=== PATIENT | male | born 1980 | race Caucasian/White ===

== ENCOUNTER 2016-10-16 14:42 | Emergency (ER) | payer MEDICARE, BC ==
[~2016-10-16] VITALS: Wt 91.0 kg
[~2016-10-16 14:42] MED LIST: ADDE30 PO; CITA10TA72 PO; CLON-429 PO; FIBER PILL PO; FISH OIL PO; LAMO25TB2 PO; LURA40TA PO; MELATONIN PO; MTF1000T PO; MULTIVITAMIN PO; TUMS PO
[2016-10-16 14:45] VITALS: Wt 91.0 kg
[2016-10-16] MEDS ORDERED: BACITUD TOP (16:22)
[2016-10-16] MEDS ORDERED: CEPH-443 PO (16:22)
--- NOTE | 2016-10-16 17:11 | ERD ---
ER Documentation Chief Complaint Date/Time DATE: 10/16/16 TIME: 17:05 Chief Complaint foot blisters HPI 35-year-old male patient with a past medical history of diabetes, anxiety, depression, asthma presents to the ED complaining of bilateral feet pain that started intermittently for 1 week. States that he has been walking barefoot. Reports that he sleeps at home with his mother, Jorge and his cats. Reports that he did not wear his shoes. Denies any trauma. Denies any homicidal and suicidal ideations. Denies any hallucinations or visual disturbances. Denies any fever, chills, nausea, vomiting, loss of sensation loss of range of motion, weakness, numbness or tingling. ROS All systems reviewed and are negative except as per history of present illness. Medications Home Meds Reported Medications Fluvoxamine Maleate (FLUVOXAMINE MALEATE) 150 Mg Cap.er.24h, 150 MG PO BID, #30 CAP 10/17/16 Trazodone Hcl* (Desyrel*) 100 Mg Tab, 100 MG PO QHS, #30 TAB 10/17/16 Omeprazole* (Omeprazole*) 40 Mg Capsule.dr, 40 MG PO DAILY, #30 CAP 10/17/16 Metformin Hcl* (Metformin Hcl*) 1,000 Mg Tablet, 1000 MG PO WITH BREAKFAST DINNE , #60 TAB 10/17/16 Losartan Potassium* (Losartan Potassium*) 50 Mg Tablet, 50 MG PO DAILY, TAB 10/17/16 Simvastatin* (Zocor*) 40 Mg Tablet, 40 MG PO QHS, #30 TAB 10/17/16 Selegiline Hcl* (Eldepril*) 5 Mg Tab, 5 MG PO WITH BREAKFAST , TAB 10/17/16 Thibodaux Carbonate* (Thibodaux*) 150 Mg Cap, 150 MG PO DAILY, CAP 10/17/16 Discontinued Reported Medications [Tums] No Conflict Check, PO BID 11/11/12 [Fiber Pill] No Conflict Check, PO DAILY 11/11/12 [Multivitamin] No Conflict Check, PO DAILY 11/11/12 [Melatonin] No Conflict Check, PO DAILY 11/11/12 [Fish Oil] No Conflict Check, PO BID 11/11/12 Dextroamphetamine-Amphetamine (Adderall) 30 Mg Tab, 30 MG PO DAILY 11/11/12 Clonazepam* (Klonopin*) 0.5 Mg Tab, 0.25 MG PO 5 TIMES PER WEEK 11/11/12 Metformin* (Glucophage*) 1,000 Mg Tablet, 1000 MG PO BID 11/11/12 Citalopram Hydrobromide* (Celexa*) 10 Mg Tablet, 40 MG PO DAILY 11/11/12 Lamotrigine* (Lamictal* CHEW) 25 Mg Tab.disper, 200 MG PO DAILY 11/11/12 Lurasidone Hcl (LATUDA) 40 Mg Tablet, 40 MG PO DAILY 11/11/12 Discontinued Scripts Bacitracin* (Bacitracin Oint (UD)*) 1 Applic Oint, 1 APPLIC TOP ONCE, #10 PKT APPLY TO blisters of feet Prov:DAYSI ADAMS PA-C 10/16/16 Cephalexin* (Keflex*) 500 Mg Capsule, 500 MG PO QID for 7 Days, CAP Prov:DAYSI ADAMS PA-C 10/16/16 Allergies Allergies: Coded Allergies: fluoxetine HCl (Verified Allergy, Mild, 10/17/16) sertraline HCl (Verified Allergy, Mild, 10/17/16) PMhx/Soc History of Surgery: Yes (LASIK SURGERY) Anesthesia Reaction: No Hx Neurological Disorder: No Hx Respiratory Disorders: No (ASTHMA) Hx Cardiac Disorders: Yes (HTN) Hx Psychiatric Problems: Yes (ANXIETY, DEPRESSION) Hx Miscellaneous Medical Probl: Yes (Diabetes) Hx Alcohol Use: No Hx Substance Use: No Hx Tobacco Use: No Smoking Status: Never smoker Physical Exam Vitals Temp 98 Pulse 114 SBP 132 DBP 71 O2 Sat 99 Physical Exam Const: [id number], well-nourished. In no acute distress. Head: Atraumatic, normocephalic Eyes: Normal Conjunctiva without injection ENT: Normal external ear, nose and mouth. Neck: Full range of motion. No meningismus. Resp: Clear to auscultation bilaterally. No wheezing, rhonchi, rales, or crackles. No accessory muscle use. No retractions. Cardio: Regular rate and rhythm, no murmurs Skin: No petechiae or rashes Back: No midline tenderness. No CVA tenderness. Ext: No cyanosis, or edema. Cap refill less than 2 seconds. Distal pulses intact bilaterally. Bilateral plantar blisters noted on the feet. No erythema , edema. Purulent discharge. Neur: Awake and alert. Normal gait and coordination. Muscle strength 5/5. Sensation intact bilaterally. Psych: Normal Mood and Affect Procedures/MDM 35-year-old male patient with no significant past medical history presents the ED complaining of bilateral plantar blisters. Patient is afebrile and nontoxic- appearing. Patient has normal vital signs. A dressing was applied to the affected area and was cleaned with normal saline. Patient was also was given socks for support. Patient is neurovascularly intact. Low suspicion for fractures, dislocations, scabies, SJS/TEN, erythema multiforme, sepsis, cellulitis, necrotizing fascitis, gangrene, meningococcemia or other emergent conditions. No indication as telepsychiatry consultation. No suicidal, homicidal ideations. No hallucinations or visual disturbances at this time. Discharge medications: Bacitracin, Keflex Follow up with primary care physician in 1-2 days for a wound check. Instructed patient to return to the ED sooner for any worsening symptoms. Patient's questions were answered. Patient understood and agreed with discharge plan. Patient discharged stable. Departure Diagnosis: Primary Impression: Friction blister of the foot Encounter type: initial encounter Laterality: unspecified laterality Qualified Code: S90.829A - Friction blister of the foot, unspecified laterality , initial encounter Condition: Stable Patient Instructions: Blister Referrals: [facility] YOU HAVE RECEIVED A MEDICAL SCREENING EXAM AND THE RESULTS INDICATE THAT YOU DO NOT HAVE A CONDITION THAT REQUIRES URGENT TREATMENT IN THE EMERGENCY DEPARTMENT. FURTHER EVALUATION AND TREATMENT OF YOUR CONDITION CAN WAIT UNTIL YOU ARE SEEN IN YOUR DOCTORS OFFICE WITHIN THE NEXT 1-2 DAYS. IT IS YOUR RESPONSIBILITY TO MAKE AN APPOINTMENT FOR FOLOW-UP CARE. IF YOU HAVE A PRIMARY DOCTOR --you should call your primary doctor and schedule an appointment IF YOU DO NOT HAVE A PRIMARY DOCTOR YOU CAN CALL OUR PHYSICIAN REFERRAL HOTLINE AT IF YOU CAN NOT AFFORD TO SEE A PHYSICIAN YOU CAN CHOSE FROM THE FOLLOWING [facility] CLINICS [facility] [address] [facility] [address] [facility] [address] [facility] [address] [facility] [address] [facility]. [facility] [address] [facility]. [facility] YOU HAVE RECEIVED A MEDICAL SCREENING EXAM AND THE RESULTS INDICATE THAT YOU DO NOT HAVE A CONDITION THAT REQUIRES URGENT TREATMENT IN THE EMERGENCY DEPARTMENT. FURTHER EVALUATION AND TREATMENT OF YOUR CONDITION CAN WAIT UNTIL YOU ARE SEEN IN YOUR DOCTORS OFFICE WITHIN THE NEXT 1-2 DAYS. IT IS YOUR RESPONSIBILITY TO MAKE AN APPOINTMENT FOR FOLOW-UP CARE. IF YOU HAVE A PRIMARY DOCTOR --you should call your primary doctor and schedule and appointment IF YOU DO NOT HAVE A PRIMARY DOCTOR YOU CAN CALL OUR PHYSICIAN REFERRAL HOTLINE AT . IF YOU CAN NOT AFFORD TO SEE A PHYSICIAN YOU CAN CHOSE FROM THE FOLLOWING [facility], [facility] INSTITUTIONS: [facility] [address] [place] [address] [facility] [address] [place] [address] [facility] [address] [place] [address] [facility] URGENT CARE/SPECIALTIES Additional Instructions: Follow up in 2 days in your clinic for wound check. FOLLOW UP WITH YOUR PRIMARY CARE PHYSICIAN TOMORROW for a referral to see a podatrist.Return to this facility if you are not improving as expected - fever, loss of sensation, loss of range of motion, infection, etc. DAYSI ADAMS PA-C Oct 16, 2016 17:11
[2016-10-17] MEDS ORDERED: LTH150C PO (15:43)
[2016-10-17] MEDS ORDERED: ELD5 PO (15:43)
[2016-10-17] MEDS ORDERED: LOSA50TA6 PO (15:44)
[2016-10-17] MEDS ORDERED: SIMV40TA2 PO (15:44)
[2016-10-17] MEDS ORDERED: OMEP40CA6 PO (15:45)
[2016-10-17] MEDS ORDERED: TRAZ100T15 PO (15:45)
[2016-10-17] MEDS ORDERED: METF1000 PO (15:45)
[2016-10-17] MEDS ORDERED: FLUV150C2 PO (15:47)
== END 2016-10-16 16:45 | disposition home or self-care (01) ==
LOC: FTE 14:42
DX: S90.821A Blister (nonthermal), right foot, initial encounter (principal); S90.822A Blister (nonthermal), left foot, initial encounter; E11.9 Type 2 diabetes mellitus without complications; J45.909 Unspecified asthma, uncomplicated; I10 Essential (primary) hypertension; X58.XXXA Exposure to other specified factors, initial encounter; Y92.9 Unspecified place or not applicable; Z79.84 Long term (current) use of oral hypoglycemic drugs
CPT/HCPCS: 99283

== ENCOUNTER 2016-10-17 15:00 | Emergency (ER) | payer MEDICARE, BC ==
[~2016-10-17] VITALS: Ht 165.1 cm; Wt 80.0 kg
[~2016-10-17 15:00] MED LIST changes: +BACITUD TOP; +CEPH-443 PO
[2016-10-17 15:03] VITALS: Ht 165.1 cm; Wt 80.0 kg
[2016-10-17] MEDS ORDERED: LTH150C PO (15:43)
[2016-10-17] MEDS ORDERED: ELD5 PO (15:43)
[2016-10-17] MEDS ORDERED: LOSA50TA6 PO (15:44)
[2016-10-17] MEDS ORDERED: SIMV40TA2 PO (15:44)
[2016-10-17] MEDS ORDERED: TRAZ100T15 PO (15:45)
[2016-10-17] MEDS ORDERED: OMEP40CA6 PO (15:45)
[2016-10-17] MEDS ORDERED: METF1000 PO (15:45)
[2016-10-17] MEDS ORDERED: FLUV150C2 PO (15:47)
[2016-10-17 16:02] LABS: BASOPHILS % 0.2 % (0.0-2.0); HEMATOCRIT 42.7 % (42.0-52.0); HEMOGLOBIN 14.4 g/dl (14.0-18.0); LYMPHOCYTES # 1.9 10^3/ul (0.8-2.9); LYMPHOCYTES % 14.1 % (15.0-51.0); MEAN CORPUSCULAR HEMOGLOBIN 27.6 pg (29.0-33.0); MEAN CORPUSCULAR HGB CONC 33.7 g/dl (32.0-37.0); MEAN CORPUSCULAR VOLUME 81.8 fl (82.0-101.0); MEAN PLATELET VOLUME 9.3 fl (7.4-10.4); MONOCYTE # 1.1 10^3/ul (0.3-0.9); NEUTROPHIL # 10.2 10^3/ul (1.6-7.5); NEUTROPHILS % 77.4 % (39.0-77.0); PLATELET COUNT 279 10^3/UL (140-415); RED BLOOD COUNT 5.22 10^6/ul (4.70-6.10); RED CELL DISTRIBUTION WIDTH 13.8 % (11.5-14.5); WHITE BLOOD COUNT 13.2 10^3/ul (4.8-10.8)
[2016-10-17 16:22] LABS: ALANINE AMINOTRANSFERASE 51 IU/L (13-69); ALBUMIN 4.9 g/dl (3.3-4.9); ALBUMIN/GLOBULIN RATIO 1.48; ALKALINE PHOSPHATASE 99 IU/L (42-121); ANION GAP 25 (8-16); ASPARTATE AMINO TRANSFERASE 31 IU/L (15-46); BILIRUBIN,INDIRECT 0.4 mg/dl (0-1.1); BILIRUBIN,TOTAL 0.4 mg/dl (0.2-1.3); BLOOD UREA NITROGEN 15 mg/dl (7-20); CARBON DIOXIDE 20 mmol/L (21-31); CHLORIDE 103 mmol/L (97-110); CREATININE 1.07 mg/dl (0.61-1.24); GLUCOSE 108 mg/dl (70-220); SODIUM 144 mmol/L (135-144); TOTAL PROTEIN 8.2 g/dl (6.1-8.1)
[2016-10-17 16:25] LABS: ACETAMINOPHEN < 10.0 ug/ml (10.0-30.0); ETHANOL < 10.0 mg/dl; SALICYLATE < 1.0 mg/dl (5.0-30.0)
[2016-10-17] MEDS ORDERED: HALOPERIDOL 5 MG INJ IM ONE (16:30)
[2016-10-17] MEDS ORDERED: BENZTROPINE 2 MG INJ IV ONE (18:00)
--- NOTE | 2016-10-17 22:09 | ERD ---
ER Documentation Chief Complaint Date/Time DATE: 10/17/16 TIME: 22:06 Chief Complaint blisters under feet HPI 35-year-old male presents the second day in a row for foot pain. He walks around he does not wear shoes. Also states that he is having auditory hallucinations. Denies any other pain besides his feet. Denies trauma. States that he does have a psychiatric history and has trouble thinking from time to time. He denies any drug use. ROS All systems reviewed and are negative except as per history of present illness. Medications Home Meds Reported Medications Fluvoxamine Maleate (FLUVOXAMINE MALEATE) 150 Mg Cap.er.24h, 150 MG PO BID, #30 CAP 10/17/16 Trazodone Hcl* (Desyrel*) 100 Mg Tab, 100 MG PO QHS, #30 TAB 10/17/16 Omeprazole* (Omeprazole*) 40 Mg Capsule.dr, 40 MG PO DAILY, #30 CAP 10/17/16 Metformin Hcl* (Metformin Hcl*) 1,000 Mg Tablet, 1000 MG PO WITH BREAKFAST DINNE , #60 TAB 10/17/16 Losartan Potassium* (Losartan Potassium*) 50 Mg Tablet, 50 MG PO DAILY, TAB 10/17/16 Simvastatin* (Zocor*) 40 Mg Tablet, 40 MG PO QHS, #30 TAB 10/17/16 Selegiline Hcl* (Eldepril*) 5 Mg Tab, 5 MG PO WITH BREAKFAST , TAB 10/17/16 Closter Carbonate* (Closter*) 150 Mg Cap, 150 MG PO DAILY, CAP 10/17/16 Discontinued Reported Medications [Tums] No Conflict Check, PO BID 11/11/12 [Fiber Pill] No Conflict Check, PO DAILY 11/11/12 [Multivitamin] No Conflict Check, PO DAILY 11/11/12 [Melatonin] No Conflict Check, PO DAILY 11/11/12 [Fish Oil] No Conflict Check, PO BID 11/11/12 Dextroamphetamine-Amphetamine (Adderall) 30 Mg Tab, 30 MG PO DAILY 11/11/12 Clonazepam* (Klonopin*) 0.5 Mg Tab, 0.25 MG PO 5 TIMES PER WEEK 11/11/12 Metformin* (Glucophage*) 1,000 Mg Tablet, 1000 MG PO BID 11/11/12 Citalopram Hydrobromide* (Celexa*) 10 Mg Tablet, 40 MG PO DAILY 11/11/12 Lamotrigine* (Lamictal* CHEW) 25 Mg Tab.disper, 200 MG PO DAILY 11/11/12 Lurasidone Hcl (LATUDA) 40 Mg Tablet, 40 MG PO DAILY 11/11/12 Discontinued Scripts Bacitracin* (Bacitracin Oint (UD)*) 1 Applic Oint, 1 APPLIC TOP ONCE, #10 PKT APPLY TO blisters of feet Prov:DAYSI ADAMS PA-C 10/16/16 Cephalexin* (Keflex*) 500 Mg Capsule, 500 MG PO QID for 7 Days, CAP Prov:DAYSI ADAMS PA-C 10/16/16 Allergies Allergies: Coded Allergies: fluoxetine HCl (Verified Allergy, Mild, 10/17/16) sertraline HCl (Verified Allergy, Mild, 10/17/16) PMhx/Soc History of Surgery: Yes (LASIK SURGERY) Anesthesia Reaction: No Hx Neurological Disorder: No Hx Respiratory Disorders: No (ASTHMA) Hx Cardiac Disorders: Yes (HTN) Hx Psychiatric Problems: Yes (Anxiety, Depression, Bipolar disorder, Schizoaffective DO.) Hx Miscellaneous Medical Probl: No Hx Alcohol Use: No Hx Substance Use: No Hx Tobacco Use: No Smoking Status: Never smoker Physical Exam Vitals Vital Signs Date Time Temp Pulse Resp B/P Pulse Ox O2 Delivery O2 Flow Rate FiO2 10/17/16 18:15 99.7 102 20 147/89 96 10/17/16 15:03 97.8 107 16 160/78 99 Physical Exam Const: [] No distress Head: Atraumatic Eyes: Normal Conjunctiva ENT: Normal External Ears, Nose and Mouth. Neck: Full range of motion..~ No meningismus. Resp: Clear to auscultation bilaterally Cardio: Regular rate and rhythm, no murmurs Abd: Soft, non tender, non distended. Normal bowel sounds Skin: No petechiae or rashes Back: No midline or flank tenderness Ext: No cyanosis, or edema, distal pulses intact, bilateral popped foot blisters with calluses and some excoriation. No bony tenderness. Capillary refill. No signs of infection Neur: Awake and alert and oriented 3, no focal deficit Psych: Does have some evidence of disorganized thinking, having auditory hallucinations. Result Diagram: 10/17/16 1528 10/17/16 1528 Results 24 hrs Laboratory Tests Test 10/17/16 15:28 White Blood Count 13.210^3/ul Red Blood Count 5.2210^6/ul Hemoglobin 14.4g/dl Hematocrit 42.7% Mean Corpuscular Volume 81.8fl Mean Corpuscular Hemoglobin 27.6pg Mean Corpuscular Hemoglobin Concent 33.7g/dl Red Cell Distribution Width 13.8% Platelet Count 95763^3/UL Mean Platelet Volume 9.3fl Neutrophils % 77.4% Lymphocytes % 14.1% Monocytes % 8.0% Eosinophils % 0.0% Basophils % 0.2% Nucleated Red Blood Cells % 0.0/100WBC Neutrophils # 10.210^3/ul Lymphocytes # 1.910^3/ul Monocytes # 1.110^3/ul Eosinophils # 0.010^3/ul Basophils # 0.010^3/ul Nucleated Red Blood Cells # 0.010^3/ul Sodium Level 144mmol/L Potassium Level 4.0mmol/L Chloride Level 103mmol/L Carbon Dioxide Level 20mmol/L Anion Gap 25 Blood Urea Nitrogen 15mg/dl Creatinine 1.07mg/dl Glucose Level 108mg/dl Calcium Level 10.0mg/dl Total Bilirubin 0.4mg/dl Direct Bilirubin 0.00mg/dl Indirect Bilirubin 0.4mg/dl Aspartate Amino Transf (AST/SGOT) 31IU/L Alanine Aminotransferase (ALT/SGPT) 51IU/L Alkaline Phosphatase 99IU/L Total Protein 8.2g/dl Albumin 4.9g/dl Globulin 3.30g/dl Albumin/Globulin Ratio 1.48 Salicylates Level < 1.0mg/dl Acetaminophen Level < 10.0ug/ml Ethyl Alcohol Level < 10.0mg/dl Current Medications Medications (Trade) Dose Ordered Sig/Claudia Route PRN Reason Start Time Stop Time Status Last Admin Dose Admin Haloperidol (Haldol) 5 mg ONCE ONCE IM 10/17/16 16:30 10/17/16 16:31 DC 10/17/16 16:55 Benztropine Mesylate (Cogentin) 2 mg ONCE ONCE IV 10/17/16 18:00 10/17/16 18:01 DC 10/17/16 18:00 Procedures/MDM Patient with acute psychosis and history of psychiatric disorders. Also has mild abrasions on his feet with no signs of infection. Fever cleaned and provided with socks. Patient had a mildly elevated white blood cell count without any signs of infection. Because he has had a totally hallucinations he requested something for he was given Haldol 5 mg IM after he felt jittery and was given Cogentin. Because of auditory hallucinations difficulty caring for himself believe that he should be evaluated by a psychiatric facility and be fully evaluated. He is going to have a tele-psychiatry evaluation and I anticipate they will recommend admission for Departure Diagnosis: Primary Impression: Foot pain Additional Impression: Acute psychosis MANINDER BEEBE DO Oct 17, 2016 22:09
[2016-10-17 23:38] LABS: ADD UMIC YES; UR ASCORBIC ACID NEGATIVE (NEGATIVE); UR BILIRUBIN (Dip) NEGATIVE (NEGATIVE); UR BLOOD (Dip) NEGATIVE (NEGATIVE); UR CLARITY SLIGHTLY CLOUDY (CLEAR); UR COLOR YELLOW (YELLOW); UR GLUCOSE (Dip) NEGATIVE (NEGATIVE); UR KETONES (Dip) 2+ mg/dL (NEGATIVE); UR LEUKOCYTE ESTERASE (Dip) NEGATIVE Leu/ul (NEGATIVE); UR MUCUS MANY /HPF (NONE SEEN); UR NITRITE (Dip) NEGATIVE (NEGATIVE); UR RBC 3 /HPF (0-5); UR SPECIFIC GRAVITY (Dip) 1.033 (1.003-1.030); UR TOTAL PROTEIN (Dip) 2+ mg/dl (NEGATIVE); UR UROBILINOGEN (Dip) NEGATIVE (NEGATIVE)
[2016-10-17 23:58] LABS: BARBITURATES Negative (NEGATIVE); BENZODIAZEPINES Negative (NEGATIVE); CANNABINOIDS Negative (NEGATIVE); COCAINE Negative (NEGATIVE); OPIATES Negative (NEGATIVE)
--- NOTE | 2016-10-18 00:04 | PSY ---
Date/Time of Note Date/Time of Note DATE: 10/17/16 TIME: 23:54 Psychiatric Subjective Eval Consent Pt consented to telemedicine: Yes Subjective Evaluation Patient location: emergency Chief Complaint: blisters under feet Medical history Problems Medical Problems: (1) Acute psychosis Status: Acute (2) Foot pain Status: Acute (3) Friction blister of the foot Status: Acute Allergies: Coded Allergies: fluoxetine HCl (Verified Allergy, Mild, 10/17/16) sertraline HCl (Verified Allergy, Mild, 10/17/16) Psychiatric Objective Eval Mental Status Examination: Laboratory Results Laboratory Tests Test 10/17/16 15:28 10/17/16 23:07 White Blood Count 13.210^3/ul Red Blood Count 5.2210^6/ul Hemoglobin 14.4g/dl Hematocrit 42.7% Mean Corpuscular Volume 81.8fl Mean Corpuscular Hemoglobin 27.6pg Mean Corpuscular Hemoglobin Concent 33.7g/dl Red Cell Distribution Width 13.8% Platelet Count 67758^3/UL Mean Platelet Volume 9.3fl Neutrophils % 77.4% Lymphocytes % 14.1% Monocytes % 8.0% Eosinophils % 0.0% Basophils % 0.2% Nucleated Red Blood Cells % 0.0/100WBC Neutrophils # 10.210^3/ul Lymphocytes # 1.910^3/ul Monocytes # 1.110^3/ul Eosinophils # 0.010^3/ul Basophils # 0.010^3/ul Nucleated Red Blood Cells # 0.010^3/ul Sodium Level 144mmol/L Potassium Level 4.0mmol/L Chloride Level 103mmol/L Carbon Dioxide Level 20mmol/L Anion Gap 25 Blood Urea Nitrogen 15mg/dl Creatinine 1.07mg/dl Glucose Level 108mg/dl Calcium Level 10.0mg/dl Total Bilirubin 0.4mg/dl Direct Bilirubin 0.00mg/dl Indirect Bilirubin 0.4mg/dl Aspartate Amino Transf (AST/SGOT) 31IU/L Alanine Aminotransferase (ALT/SGPT) 51IU/L Alkaline Phosphatase 99IU/L Total Protein 8.2g/dl Albumin 4.9g/dl Globulin 3.30g/dl Albumin/Globulin Ratio 1.48 Salicylates Level < 1.0mg/dl Acetaminophen Level < 10.0ug/ml Ethyl Alcohol Level < 10.0mg/dl Urine Color YELLOW Urine Clarity SLIGHTLY CLOUDY Urine pH 5.0 Urine Specific Beauty 1.033 Urine Ketones 2+mg/dL Urine Nitrite NEGATIVEmg/dL Urine Bilirubin NEGATIVEmg/dL Urine Urobilinogen NEGATIVEmg/dL Urine Leukocyte Esterase NEGATIVELeu/ul Urine Microscopic RBC 3/HPF Urine Microscopic WBC 1/HPF Urine Mucus MANY/HPF Urine Hemoglobin NEGATIVEmg/dL Urine Glucose NEGATIVEmg/dL Urine Total Protein 2+mg/dl Assessment Additional comments: IDENTIFYING INFORMATION: 35 year old Male patient who is currently located at the hospital and for whom psychiatric consultation was requested. SOURCES OF INFORMATION: The patient who appears to be somewhat reliable and the medical records; the nursing staff. CHIEF COMPLAINT: "I had a long psychotic episode". HISTORY OF PRESENT ILLNESS: The patient was interviewed via telemedicine in the presence of and under the supervision of nursing staff of the hospital. The consent to conducting this interview via telemedicine was obtained by the nursing staff at the hospital. ARNAV Black reports that the patient presented yesterday barefoot with foot pain, was disorganized, was not answering questions appropriately, was RTIS. Pt was better more organized today after he presented to the ER for a second evaluation. Pt was bizarre with staff, and was RTIS. Pt requested antipsychotics , and received Haldol. The patient gone a dystonic reaction from the Haldol, and was therefore administered benztropine.. Is not on a hold. According to the emergency room physician's note, the patient presented with food pain, walked into the emergency room walking barefoot. He stated that he had auditory hallucinations. The patient reports that he was under a lot of stress, and was having a psychotic episode. Admits to hearing voices from a pocket world . Reports that time was going very slow. Reports that he got sunburned badly earlier today because he stayed outside for very long because of the psychotic episode. Reports that he was depressed but now feels better. Reports that he has not been sleeping well. Denies having SI, HI, paranoia. The patient denies using alcohol heavily or regularly. The patient denies using any other substances. In terms of past psychiatric history, the patient reports having a history of past psychiatric hospitalizations; the diagnosis was schizophrenia. The patient reports having a history of no past suicide attempts. PAST MEDICAL HISTORY: DM. CURRENT MEDICATIONS: metformin, lithium, fluvoxamine, trazodone, omeprazole, losartan, simvastatin, selegiline (last took his meds this past ). ALLERGIES TO MEDICATIONS: fluoxetine, sertraline. SOCIAL HISTORY: single, no children; on disability, no access to firearms. LABORATORY TESTS: CBC with white blood cells of 13.2, MCV 81.8, MCH 27.6. CMP with carbon dioxide of 20, anion gap of 25, total protein 8.2, alcohol was less than 10. REVIEW OF SYSTEMS: Constitutional (e.g., fever, weight loss): negative; Eyes, Ears, Nose, Mouth, Throat: negative; Cardiovascular: negative; Respiratory: negative; Gastrointestinal: negative; Genitourinary: negative; Musculoskeletal: + foot pain; Integumentary (skin and/or breast): + sunburns; Neurological: negative; Psychiatric: as per HPI; Endocrine: negative; Hematologic/Lymphatic: negative; Allergic/Immunologic: negative. MENTAL STATUS EXAMINATION: General Appearance and Behavior: somewhat restless, appears to be responding to internal stimuli, cooperative with most of the interview, pleasant with the current interviewer, makes good eye contact, poorly groomed, increased psychomotor activity, no abnormal movements noted. Speech: Normal rate, regular rhythm, normal latency, normal volume. Flow of thought: tangential, illogical, not goal-directed at times, illogical at other times.. Content of thought: + auditory hallucinations, + bizarre delusions, no visual hallucinations, denies having suicidal ideation; no homicidal ideation. Mood: "OK". Affect: flat, decreased range of reactivity. Attention: normal based on the interview. Insight: poor. Judgment: poor. Memory: normal based on the interview. Sensorium: alert and oriented to person, place, September,. ASSESSMENT: The patient's presentation and history are consistent with the diagnosis of unspecified psychotic disorder. The patient presents with an exacerbation of psychosis in the context of medication noncompliance. The patient reports that he has been diagnosed with schizophrenia in the past. The patient presented with disorganized behavior leading to dangerous situations including getting a serious sunburn. Draper I: unspecified psychotic disorder. Draper II: Deferred. Draper III: see PMH. Draper IV: social stressors. Draper V: GAF: 20. PLAN: - Medication management: Would start Latuda 40 mg po qam. Would start haloperidol 5 mg IM PRN severe agitation q4 hours. Would start diphenhydramine 50 mg IM PRN severe agitation q4 hours. Would start lorazepam 2 mg IM PRN severe agitation q4 hours Will defer to the inpatient psychiatry team for other medication changes. - Labs: please check UDS. - Psychotherapy: Provided supportive psychotherapy and psychoeducation. - Disposition: Would recommend involuntary admission to the inpatient psychiatric unit given the severity of the patient's psychiatric condition and the fact that the patient is an imminent danger to self and/or others so long as the patient has been cleared medically for admission to psychiatry. Inpatient psychiatric admission is at this time the least restrictive environment where the patient can receive the psychiatric care that is needed. Would place on suicide precautions. The patient fulfills criteria for being placed on involuntary hold due to being gravely disabled. Of note, the patient is in agreement with the above plan. Discussed about the above plan with emergency room physician. SHAY BEACH MD Oct 18, 2016 00:04
[2016-10-18] MEDS ORDERED: LORAZEPAM 2 MG INJ ONE (04:20)
[2016-10-18] MEDS ORDERED: LORAZEPAM 2 MG INJ IM ONE (04:30)
[2016-10-18 18:24] VITALS: BP 123/71; PULSE 81; RESP 18; TEMP 98.6
== END 2016-10-18 18:25 | disposition home or self-care (01) ==
LOC: E/R 15:00
DX: M79.671 Pain in right foot (principal); M79.672 Pain in left foot; J45.909 Unspecified asthma, uncomplicated; I10 Essential (primary) hypertension; F29 Unspecified psychosis not due to a substance or known physiological condition; Z79.84 Long term (current) use of oral hypoglycemic drugs
CPT/HCPCS: 36415; 80053; 80306; 80307; 81001; 85025; 96372; 96374; 99284; J0515; J1630; J2060